=== PATIENT | male | born 1965 | race Two or more races ===

== ENCOUNTER 2022-09-01 13:24 | Outpatient (CLI) | payer OTHER | END 2022-09-01 13:31 | disposition home or self-care (01) | LOC: RAD 13:24 | PROVIDERS: ATTEND Surgery | DX: L97.828 Non-pressure chronic ulcer of other part of left lower leg with other specified severity (principal) ==

== ENCOUNTER 2022-09-21 09:58 | Outpatient (CLI) | payer OTHER | END 2022-09-21 10:03 | disposition home or self-care (01) | LOC: NUCLEAR 09:58 | PROVIDERS: ATTEND Specialist | DX: I73.9 Peripheral vascular disease, unspecified (principal) ==

== ENCOUNTER 2022-09-22 10:07 | Outpatient (CLI) | payer OTHER | END 2022-09-22 10:10 | disposition home or self-care (01) | LOC: NUCLEAR 10:07 | PROVIDERS: ATTEND Surgery | DX: I87.2 Venous insufficiency (chronic) (peripheral) (principal) ==